=== PATIENT | female | born 1955 | race Caucasian/White ===

== ENCOUNTER 2018-07-08 15:40 | Outpatient (REF) | payer BC, SELFPAY ==
--- NOTE | 2018-07-08 15:00 | PAPFT_PTH ---
PATIENT: Flor Ziegler LOC: [facility] U#:[id number] AGE/SX: 63/F ROOM: RE07/08/[address]: Jany Rivera : 1955 BED: DIS: 07/08/2018 SPEC #: [id number] RECD: 07/08/18 17:55 STATUS: MICHAELLE RERicky #: [id number] SHIRA: 07/08/18 15:[address]: Jany Rivera DEPT: [facility] Cytology RECD BY: Sherrell Thurston ENTERED: 07/08/18 17:55 SP TYPE: PAPFT OTHR DR: Kev Montero Tissues: 1 - CX/ENDOCX FOR PAP SMEARS Procedures: PAP THIN PREP/UVM Screening HPV DNA PROBE Comments: [id number]
== END 2018-07-08 16:00 ==
LOC: LBN 15:40
PROVIDERS: PCP Internal Medicine; Visit Provider Obstetrics & Gynecology Gynecology
DX: Z12.4 Encounter for screening for malignant neoplasm of cervix (principal); Z11.51 Encounter for screening for human papillomavirus (HPV)
CPT/HCPCS: 88142; 87624

== ENCOUNTER 2018-08-30 08:46 | Emergency (ER) | payer BC, SELFPAY ==
--- NOTE | 2018-08-30 08:59 | NUR.NOTE ---
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
[2018-08-30 09:00] VITALS: BP 130/65; PULSE 89; RESP 15; TEMP 36.9; O2SAT 99
--- NOTE | 2018-08-30 09:21 | W.ED.GENAD ---
Discharge Plan Disposition Patient Disposition: HOME Condition: Good Discharge Details Chief Complaint: AnimalBite Clinical Impression: Cat bite Primary Care Provider: Kev Montero ED Provider: Edgar Chaudhari Home Meds and New Rx's Prescriptions: New amoxicillin-pot clavulanate [Augmentin] 875-125 mg tablet 1 tab PO BID Qty: 20 RF: 0 No Action cholecalciferol (vitamin D3) 2,000 unit capsule 2,000 unit PO DAILY RF: 0 tretinoin [Retin-A] 45 GM cream 45 gm Topical DAILY RF: 0 clindamycin phosphate [Cleocin T] 1 EACH swab 1 ea Topical DAILY RF: 0 nitrofurantoin macrocrystal 100 mg capsule 100 mg PO DAILY PRN (Reason: postcoital cystitis) Qty: 90 RF: 4 biotin 1 MG capsule 1 tab PO QAM RF: 0 Discharge Instructions Instructions: Animal Bite (ED) Additional Instructions: Please closely watch for redness, swelling or discharge. Please take the antibiotic as directed. Please continue to bandage the wound as we showed you. If you notice any redness swelling or discharge return immediately for reevaluation. He may need IV antibiotics at this does occur. Please call us immediately when you return to the nursing home after you have reviewed the rabies status of the animal, if the rabies is not up-to-date please return for immediately your vaccines. If you notice any worsening of your symptoms, or any new symptoms such as vomiting, diarrhea, fever, chills, shortness of breath, chest pain, numbness, weakness, or fainting , please return immediately to the emergency department for reevaluation. Please follow up with your primary care provider as soon as possible for reassessment and reevaluation. As always, it was a pleasure participating in your medical care today. Referrals: Kev Montero MD [Primary Care Provider] - Discharge Data Discharge Date/Time-TO BE ENTERED AT DEPARTURE: 08/30/18 09:51 Medical Decision Making This is a pleasant 63-year-old female who presents for Bite. 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 Uncertain of the cat's rabies status. After she was bit she immediately washed it with saline and hydrogen peroxide and came in for further evaluation. Exam demonstrates 2 small puncture wounds on the distal forearm, one small superficial abrasion just distal to the radius, and over the thenar eminence. No active bleeding. Sensation and neurovascular exam are otherwise normal. The areas were again cleaned with a chlorhexidine scrub vigorously for 3 minutes. No areas need suturing. Patient was given a dose of Augmentin, her tetanus has been updated. We are unable to get a hold of anyone at the nursing home, the patient forgot her cell phone at home. The patient will go back to the nursing home, review the cat's rabies status, and then if it is not up-to-date she will come back for her first rabies dose. I had a long discussion with her regarding red flags for which to return including signs or symptoms of redness, fever, or infection. Since there is no example or evidence of this at this current time I feel she can be safely discharged home. I have extensively reviewed the treatment plan and discharge instructions with the patient. I have addressed all patient concerns at this time. The patient was made aware of what symptoms to monitor for that would warrant a return to the emergency department. Discussed the plan with the patient, they demonstrate verbal understanding and agreement with our assessment and plan at this time. Patient did call back, and upon her review the Does have physicians up-to-date for rabies. Immunization catch order was [id number]. No indication for rabies vaccination for the patient here. Patient is doing well on her call back. HPI General Date/Time Provider Initiated Documentation: 08/30/18 09:09. HPI Narrative: This is a pleasant 63-year-old female with no significant past medical history who presents today for evaluation of Bite. 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 She cleaned the area with soap and water and hydrogen peroxide, and then came in for further evaluation. She denies any significant numbness tingling or weakness. She denies any complaints of fever or chills. No other complaints at this time. No other modifying factors. Her tetanus is not up-to-date. Patient is uncertain of the rabies status of the cat but she thinks it is up-to-date. Related Data Home Medications Medication Instructions Recorded Confirmed biotin 1 tab PO QAM 05/29/14 08/30/18 clindamycin phosphate [Cleocin T 1 ea TOPICAL DAILY script 09/07/15 08/30/18 Pledget] tretinoin [Retin-A 0.05% Cream] 45 gm TOPICAL DAILY script 09/07/15 08/30/18 nitrofurantoin macrocrystal 100 mg 100 mg PO DAILY PRN #90 cap 06/04/18 08/30/18 capsule cholecalciferol (vitamin D3) 2,000 2,000 unit PO DAILY 07/08/18 08/30/18 unit capsule amoxicillin-pot clavulanate 1 tab PO BID #20 tab 08/30/18 [Augmentin] Previous Rx's Medication Instructions Recorded nitrofurantoin macrocrystal 100 mg 100 mg PO DAILY PRN #90 cap 06/04/18 capsule amoxicillin-pot clavulanate 1 tab PO BID #20 tab 08/30/18 [Augmentin] Allergies Allergy/AdvReac Type Severity Reaction Status Date / Time sulfamethoxazole Allergy Hives Unverified 08/30/18 09:02 [From Bactrim] trimethoprim [From Bactrim] Allergy Hives Unverified 08/30/18 09:02 General Stated Complaint: AnimalBite KATHRINE: 4 Review of Systems Review of Systems All systems reviewed & are unremarkable except as noted in HPI and below PFSH Medical History Diverticulitis of both large and small intestine with perforation and abscess with bleeding (~2006) Osteopenia Sciatica Seasonal affective disorder UTI diverticulosis hx of postcoital cystitis rosacea Surgical History Colectomy Colonoscopy - IV Sedation Ligation of fallopian tube knee surgery Family History Other AAA (abdominal aortic aneurysm) Social History household members: spouse marital status details: Sherif number of children: 0 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 pets and animals: Yes (6 cats at home) pets and animals: cat(s) leisure activities: exercise Smoking and Tabacco status: Former Tobacco Use alcohol intake: current alcohol intake frequency: a few times a week substance use type: does not use Seatbelt use: always Female Reproductive History Menstrual control method: none History History 2 Para 0 Hx # Term Pregnancies 0 Multiple births Hx # Pregnancies Ectopic pregnancies AB induced Hx Number of Living Children AB spontaneous Exam Narrative Exam Narrative: 1.Const: Well-nourished, Well-developed, appearing stated age 2.Eyes: PERRL, no conjunctival injection, and symmetrical lids. 3.ENT: Atraumatic external nose and ears. Moist MM. Neck: Symmetric, trachea midline, No thyromegaly. 4.CVS: +S1/S2, No murmurs or gallops. Peripheral pulses 2+ and equal in all extremities. Brisk capillary refill in all extremities. 5.RESP: Unlabored respiratory effort. Clear to auscultation bilaterally. No wheezes rales or rhonchi 6.GI: Soft, Nontender/Nondistended, No hepatosplenomegaly. No guarding or rebound. 7.MSK: Normocephalic/Atraumatic, Extremities w/o deformity or ttp No cyanosis or clubbing, Normal movement of all extremities 8.Skin: Warm, Dry. 2 small puncture wounds 3 inches proximal to the distal radius on the right forearm, one small superficial scrape just distal to the distal radius. One small abrasion on the thenar eminence on the anterior component. No active bleeding. Minimal surrounding erythema. No purulent discharge. Symmetrically palpable radial and ulnar pulses. Capillary refill ?2 seconds to all digits. Intact sensation to light touch of the radial, median and ulnar nerves demonstrated by testing in the dorsal web space of the thumb, the distal palmar aspect of the index finger, and the lateral surface of the fifth finger. 2 point discrimination intact to 5mm of discrimination in the affected digit. 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 Intact recurrent median nerve as demonstrated by ability to move thumb fully through opposition, abduction and flexion. No snuffbox tenderness. 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 Sensation grossly intact, no focal neurologic deficits. 10.Psych: (AAO) x3. Appropriate mood and affect Course Vital Signs Temperature 36.9 C 08/30/18 09:00 Pulse 89 08/30/18 09:00 Respiratory Rate 15 08/30/18 09:00 Blood Pressure 130/65 08/30/18 09:00 Pulse Oximetry 99 08/30/18 09:00 Temperature 36.9 C 08/30/18 09:00 Temperature Source Skin 08/30/18 09:00 Pulse 89 08/30/18 09:00 Respiratory Rate 15 08/30/18 09:00 Respiratory Effort 08/30/18 09:02 Blood Pressure 130/65 08/30/18 09:00 Blood Pressure Position Sitting 08/30/18 09:00 Pulse Oximetry 99 08/30/18 09:00 Oxygen Delivery Method Room Air 08/30/18 09:00 Oxygen Flow Rate 0 08/30/18 09:00 Pain Level 2 08/30/18 09:00
--- NOTE | 2018-08-30 09:38 | NUR.NOTE ---
message left on [facility] Officer voice mail Rony Archibald [phone] to call back so I can report animal bite.Nursing Note:
[2018-08-30] MEDS: Amoxicillin 875/Clav. 125 TAB (09:39)
[2018-08-30 09:48] VITALS: BP 130/65; PULSE 89; RESP 15; TEMP 36.9; O2SAT 99
== END 2018-08-30 09:51 | disposition home or self-care (01) ==
LOC: ER 09:49
PROVIDERS: Emergency Provider Student in an Organized Health Care Education/Training Program; PCP Internal Medicine
DX: S51.831A Puncture wound without foreign body of right forearm, initial encounter (principal); S60.511A Abrasion of right hand, initial encounter; W55.01XA Bitten by cat, initial encounter
CPT/HCPCS: 90471; 99284; 99283

== ENCOUNTER 2018-11-13 09:22 | Emergency (ER) | payer BC, SELFPAY ==
[2018-11-13 09:24] VITALS: BP 128/76; PULSE 124; RESP 16; TEMP 36.7; O2SAT 98
[2018-11-13] MEDS: Normal Saline 1,000 ML 1000 ML IV (09:50)
--- NOTE | 2018-11-13 09:54 | DI.CT_ITS ---
SYMPTOMS/DIAGNOSIS: LLQ PAIN ABDOMINAL AND PELVIC CT: CT examination of the abdomen and pelvis was performed with a bolus infusion of 100 cc's of Omnipaque 350. Images obtained through the lung bases are unremarkable. There is an apparent 12 mm in diameter presumed left hepatic lobe cyst. Spleen is unremarkable. Pancreas appears normal. Gallbladder and bile ducts are CT normal. Abdominal aorta is of normal diameter and no major vascular abnormality is seen. No abdominal or pelvic adenopathy seen. Adrenals and kidneys are unremarkable. No urinary tract calcification or obstruction. Appendix appears normal. There is colonic diverticulosis. There is an apparent diverticulitis of the distal transverse colon with wall thickening and marked pericolonic fat edema. No evidence of abscess or perforation. No evidence of obstruction. CONCLUSION: Findings consistent with diverticulitis of the distal transverse colon as described above.
[2018-11-13 09:55] LABS: Abs Immature Grans 0.05 k/cumm (0.0-0.09); Absolute Basophil Count 0.02 k/cumm (0.0-0.2); Absolute Eosinophil Count 0.04 k/cumm (0.0-0.7); Absolute Lymphocyte Count 1.78 k/cumm (1.2-3.4); Absolute Monocyte Count 1.03 k/cumm (0.11-0.7); Absolute Neutrophil Count 8.27 k/cumm (1.2-6.7); Basophils % 0.2; Eosinophils % 0.4; HCT 39.4 % (36.0-46.0); HGB 13.2 g/dL (12.0-15.5); Immature Grans % 0.4; Lymphocytes % 15.9; Mean Corp. HGB Concentration 33.5 g/dL (32.0-36.0); Mean Corpuscular Volume 92.5 fL (80-95); Mean Platelet Volume 9.1 fL (8.0-11.0); Monocytes % 9.2; Neutrophils % 73.9; Platelet Count 201 x1000/uL (130-400); RBC 4.26 m/cumm (4.00-5.20); RBC Distribution Width 12.5 % (11.7-14.6); White Blood Cell Count 11.19 k/cumm (4.4-10.8)
--- NOTE | 2018-11-13 09:59 | ED.GENADUL_ITS ---
Discharge Plan Disposition Patient Disposition: HOME Condition: Fair Discharge Details Chief Complaint: Abd Prob Clinical Impression: Diverticulitis Primary Care Provider: Kev Montero ED Provider: Dixie Sorensen Home Meds and New Rx's Prescriptions: New metronidazole [Flagyl] 500 mg tablet 500 mg PO TID Qty: 30 RF: 0 ciprofloxacin HCl [Cipro] 500 mg tablet 500 mg PO BID Qty: 20 RF: 0 promethazine 25 mg tablet 25 mg PO Q6H PRN (Reason: nausea and vomiting) Qty: 10 RF: 0 oxycodone 5 mg tablet 5 mg PO Q6H PRN (Reason: pain) Qty: 7 RF: 0 No Action cholecalciferol (vitamin D3) 2,000 unit capsule 2,000 unit PO DAILY RF: 0 tretinoin [Retin-A] 45 GM cream 45 gm Topical DAILY RF: 0 clindamycin phosphate [Cleocin T] 1 EACH swab 1 ea Topical DAILY RF: 0 nitrofurantoin macrocrystal 100 mg capsule 100 mg PO DAILY PRN (Reason: postcoital cystitis) Qty: 90 RF: 4 Discharge Instructions Instructions: Diverticulitis (ED), Diverticulitis Diet (ED) Additional Instructions: Encourage hydration. Tylenol and ibuprofen as needed for discomfort. May augment this with the Oxycodone as prescribed. Take this medication as prescribed, keep in a safe place. Please take antibiotics as prescribed. Even if symptoms improve, please take the entire course. Please take probiotic while taking these medications. You have an appointment Saturday with primary care office at 10:15AM. If you are unable to make appointment, please call number listed below. If you develop fever/chills, increased pain, inability stay hydrated or the new/worsening symptoms please seek care urgently once again Referrals: Kev Montero MD [Primary Care Provider] - Medical Decision Making Patient presents today with chief complaint of left lower quadrant pain that began yesterday. On exam, patient does appear uncomfortable. She is noted to be tachycardic, heart rate currently 124. She is tender in the left lower quadrant. She does appear dehydrated. Concern for recurrence of her diverticulitis versus other abdominal source. Pain does not seem low enough to be associated with gynecologic complaints. I am concerned with the patient's history for complications associated with diverticulitis and therefore will obtain a CT scan. Patient requesting analgesia and antiemetic. Labs significant for leukocytosis of 11.19, gap 12.5, AST 49. AST has not been elevated historically. Discussed this with patient. Do not think that this linked to todays complaint, advised her PCP will need to recheck this. Awaiting CT. Spoke with radiologist who advises findings consistent with acute diverticulitis. No findings suggestive of abscess or perforation. Discussed these findings with the patient. She will be placed on ofloxacin and Flagyl. She is been on these medications as directed and is tolerating them well. We discussed the risks associated with these medications. Encouraged that she use a probiotic. Patient is also requesting medication for pain and nausea. Will prescribe oral Phenergan and oxycodone. She was given strict usage guidelines on the oxycodone. Advised that she only uses if unsuccessful Tylenol and ibuprofen. Encourage hydration. Advised patient needs close follow-up with primary care, appointment Saturday with primary care office at 10:15AM for follow-up. She was given strict return precautions. All his questions and concerns were addressed and she is in agreement with this plan HPI General Mode of arrival: ambulatory . Date/Time Provider Initiated Documentation: 11/13/18 09:39 . Limitations to Documentation: no limitations . Information obtained by: patient and RN notes reviewed . HPI Narrative: Patient is a 63-year-old female presents today with chief complaint of left lower quadrant pain. She reports the pain began yesterday patient reports that she has history of diverticulitis is quite similar to this. Last episode of diverticulitis was in 2006 at which time the patient is up with a perforation and subsequent partial colectomy. She is since had a reversal of her colonoscopy. She denies any fevers or chills. Denies any changes in bowel or bladder habits. Is not noted any blood in her stool. Pain is not radiate. Denies any back pain. Surgical history also pertinent for tubal ligation. Related Data Home Medications Medication Instructions Recorded Confirmed clindamycin phosphate [Cleocin T 1 ea TOPICAL DAILY script 09/07/15 11/13/18 Pledget] tretinoin [Retin-A 0.05% Cream] 45 gm TOPICAL DAILY script 09/07/15 11/13/18 nitrofurantoin macrocrystal 100 mg 100 mg PO DAILY PRN #90 cap 06/04/18 11/13/18 capsule cholecalciferol (vitamin D3) 2,000 2,000 unit PO DAILY 07/08/18 11/13/18 unit capsule ciprofloxacin HCl [Cipro] 500 mg PO BID #20 tab 11/13/18 metronidazole [Flagyl] 500 mg PO TID #30 tab 11/13/18 oxycodone 5 mg PO Q6H PRN #7 tab 11/13/18 promethazine 25 mg PO Q6H PRN #10 tab 11/13/18 Previous Rx's Medication Instructions Recorded nitrofurantoin macrocrystal 100 mg 100 mg PO DAILY PRN #90 cap 06/04/18 capsule ciprofloxacin HCl [Cipro] 500 mg PO BID #20 tab 11/13/18 metronidazole [Flagyl] 500 mg PO TID #30 tab 11/13/18 oxycodone 5 mg PO Q6H PRN #7 tab 11/13/18 promethazine 25 mg PO Q6H PRN #10 tab 11/13/18 Allergies Allergy/AdvReac Type Severity Reaction Status Date / Time sulfamethoxazole Allergy Hives Unverified 11/13/18 09:32 [From Bactrim] trimethoprim [From Bactrim] Allergy Hives Unverified 11/13/18 09:32 General Stated Complaint: Abd Prob KATHRINE: 3 Review of Systems Constitutional Reports as per HPI, Denies chills, Denies fatigue, Denies fever(s) and Denies headache(s) ENT Denies headache(s) Cardiovascular Reports as per HPI, Denies chest pain and Denies dyspnea Respiratory Reports as per HPI, Denies cough and Denies dyspnea Gastrointestinal Reports as per HPI, Reports abdominal pain, Denies melena, Denies change in bowel habits, Denies change in stool character, Denies cramping, Denies heartburn, Denies diarrhea, Denies loose stools, Reports nausea, Denies vomiting and Denies hematemesis Genitourinary Reports as per HPI Musculoskeletal Reports as per HPI and Denies back pain Integumentary/Breasts Reports as per HPI and Denies rash Neurologic Reports as per HPI and Denies headache(s) Endocrine Denies fatigue [facility] Medical History Diverticulitis of both large and small intestine with perforation and abscess with bleeding (~2006) Osteopenia Sciatica Seasonal affective disorder UTI diverticulosis hx of postcoital cystitis rosacea Surgical History Colectomy Colonoscopy - IV Sedation Ligation of fallopian tube knee surgery Family History Other AAA (abdominal aortic aneurysm) Social History Smoking/Tobacco Use Status: Former Tobacco Use Alcohol Intake: current Alcohol Intake frequency: a few times a week Alcohol type: wine Drug use: Never Substance use type: does not use Household members: spouse Number of Children: 0 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 Pets and animals: Yes (6 cats at home) Pets and animals: cat(s) Seatbelt use: always Do you feel safe at home: Yes Do you feel safe in your relationship?: Yes Female Reproductive History Menstrual control method: none History History 2 Para 0 Hx # Term Pregnancies 0 Multiple births Hx # Pregnancies Ectopic pregnancies AB induced Hx Number of Living Children AB spontaneous Exam Const General: cooperative, healthy appearing, comfortable, no acute distress and well developed Nutritional Appearance: average body habitus and well nourished Orientation: alert and awake HENMT Head: normal to inspection Mouth: moist mucous membranes Resp Effort & Inspection: normal respiratory effort, able to speak in complete sentences and no respiratory distress Auscultation: clear to auscultation bilaterally, no rales, no rhonchi and no wheezes Cardio Rate: regular rate Rhythm: regular rhythm Heart Sounds: S1 normal and S2 normal GI Inspection: normal to inspection and scar (low midline inicision, well healed) Palpation: soft, no hepatosplenomegaly, not firm, no guarding, tender in the LLQ; obturator sign negative, psoas sign negative and with no rebound tenderness and No ascites Percussion: normal to percussion Auscultation: normal bowel sounds Back/Spine/Pelvis Back: no CVA tenderness Skin General skin exam: no rashes or lesions noted Trauma: no lacerations or abrasions Neuro General: alert and awake Cognition: normal cognition Speech: speech normal Gait: normal gait Psych Appearance: grossly normal and well kempt Mental Status: mental status grossly normal Speech and Movement: speech and movement normal Course Vital Signs Temperature 36.7 C 11/13/18 09:24 Pulse 124 H 11/13/18 09:24 Respiratory Rate 16 11/13/18 09:24 Blood Pressure 128/76 11/13/18 09:24 Pulse Oximetry 98 11/13/18 09:24 Temperature 36.7 C 11/13/18 09:24 Temperature Source Skin 11/13/18 09:24 Pulse 124 H 11/13/18 09:24 Respiratory Rate 16 11/13/18 09:24 Respiratory Effort Short of Breath 11/13/18 09:29 Blood Pressure 128/76 11/13/18 09:24 Blood Pressure Position Sitting 11/13/18 09:24 Pulse Oximetry 98 11/13/18 09:24 Oxygen Delivery Method Room Air 11/13/18 09:24 Oxygen Flow Rate 0 11/13/18 09:24 Pain Level 5 11/13/18 09:24
[2018-11-13 10:15] LABS: ALT 57 U/L (12-78); AST 49 U/L (15-37); Albumin 3.9 g/dL (3.4-5.0); Alkaline Phosphatase 104 U/L (46-116); Anion Gap 12.5 mmol/L (3-11); BUN 18 mg/dL (7-18); Bilirubin, Total 0.4 mg/dL (0.2-1.0); CO2 23.5 mmol/L (21.0-32.0); CREATININE 0.63 mg/dL (0.55-1.02); Calcium 8.6 mg/dL (8.5-10.1); Chloride 101 mmol/L (98-107); Glucose 100 mg/dL (70-100); Potassium 3.7 mmol/L (3.5-5.1); Sodium 137 mmol/L (136-145); Total Protein 7.6 g/dL (6.4-8.2)
[2018-11-13 10:17] LABS: Troponin I < 0.02 ng/mL (0.00-0.06)
[2018-11-13] MEDS: Ondansetron 4 MG/2 ML VIAL IVP (10:35)
[2018-11-13 10:39] VITALS: BP 133/56; PULSE 103; RESP 18; TEMP 36.8; O2SAT 99
[2018-11-13 10:39] LABS: Bilirubin Negative (Negative); Blood Trace-lysed (Negative); Clarity Clear; Glucose Negative (Negative); Ketones Negative (Negative); Leukocyte Esterase Negative (Negative); Nitrite Negative (Negative); Urobilinogen 0.2 EU/dL (Up TO 0.2)
[2018-11-13 10:56] LABS: Bacteria Rare HPF (Negative); C & S Indicated? No; Casts Negative LPF (Negative); Crystals Negative HPF (Negative); Epithelial Cells Rare HPF (Negative); Mucus Negative (Negative); RBC 0-2 (0-2); WBC 0-2 HPF (0-5)
[2018-11-13] MEDS: Omnipaque 350 MG/ML 100 ML BTL IJ (12:17)
[2018-11-13] MEDS: Normal Saline 1,000 ML 500 ML IV (12:26)
== END 2018-11-13 13:10 | disposition home or self-care (01) ==
PROVIDERS: Emergency Provider Physician Assistant; PCP Internal Medicine
DX: K57.30 Diverticulosis of large intestine without perforation or abscess without bleeding (principal)
CPT/HCPCS: 36415; 80053; 96361; 96374; 96375; 99285; 74177; 81003; 81015; 83735; 84484; 85025; 99284; J2405; J3490

== ENCOUNTER 2018-11-17 11:18 | Outpatient (REF) | payer BC, SELFPAY ==
[2018-11-17 22:18] LABS: Bacteria Rare HPF (Negative); C & S Indicated? No; Casts Negative LPF (Negative); Crystals Negative HPF (Negative); Epithelial Cells Rare HPF (Negative); Mucus Negative (Negative); RBC Negative (0-2); WBC Negative HPF (0-5)
== END 2018-11-17 11:38 ==
LOC: NCHCN 11:18
PROVIDERS: PCP Internal Medicine; Visit Provider Specialist/Technologist Athletic Trainer
DX: R31.21 Asymptomatic microscopic hematuria (principal); K57.92 Diverticulitis of intestine, part unspecified, without perforation or abscess without bleeding
CPT/HCPCS: 81015

== ENCOUNTER 2019-02-13 16:05 | Outpatient (REF) | payer BC, SELFPAY ==
[2019-02-13 21:00] LABS: Abs Immature Grans 0.02 k/cumm (0.0-0.09); Absolute Basophil Count 0.03 k/cumm (0.0-0.2); Absolute Eosinophil Count 0.04 k/cumm (0.0-0.7); Absolute Lymphocyte Count 2.05 k/cumm (1.2-3.4); Absolute Monocyte Count 0.44 k/cumm (0.11-0.7); Absolute Neutrophil Count 3.76 k/cumm (1.2-6.7); Basophils % 0.5; Eosinophils % 0.6; HCT 43.3 % (36.0-46.0); HGB 14.2 g/dL (12.0-15.5); Immature Grans % 0.3; Lymphocytes % 32.3; Mean Corp. HGB Concentration 32.8 g/dL (32.0-36.0); Mean Corpuscular Hemoglobin 30.8 pg (27.0-33.0); Mean Corpuscular Volume 93.9 fL (80-95); Mean Platelet Volume 9.6 fL (8.0-11.0); Monocytes % 6.9; Neutrophils % 59.4; Platelet Count 253 x1000/uL (130-400); RBC 4.61 m/cumm (4.00-5.20); RBC Distribution Width 12.7 % (11.7-14.6); White Blood Cell Count 6.34 k/cumm (4.4-10.8)
[2019-02-13 21:07] LABS: ALT 26 U/L (12-78); AST 11 U/L (15-37); Albumin 4.2 g/dL (3.4-5.0); Alkaline Phosphatase 75 U/L (46-116); Anion Gap 9.8 mmol/L (3-11); BUN 14 mg/dL (7-18); Bilirubin, Total 0.2 mg/dL (0.2-1.0); CO2 28.2 mmol/L (21.0-32.0); CREATININE 0.64 mg/dL (0.55-1.02); Calcium 8.9 mg/dL (8.5-10.1); Chloride 105 mmol/L (98-107); Glucose 92 mg/dL (70-100); Sodium 143 mmol/L (136-145); Total Protein 7.5 g/dL (6.4-8.2)
== END 2019-02-13 16:25 ==
LOC: NCHCN 16:05
PROVIDERS: PCP Internal Medicine; Visit Provider Nurse Practitioner Family
DX: R10.32 Left lower quadrant pain (principal); K57.92 Diverticulitis of intestine, part unspecified, without perforation or abscess without bleeding
CPT/HCPCS: 80053; 85025

== ENCOUNTER 2020-04-27 02:39 | Outpatient (CLI) | payer OTHER, SELFPAY ==
--- NOTE | 2020-04-27 13:09 | DI.MAMMO_ITS ---
EXAM: MAMMO SCREENING CLINICAL HISTORY: SCREENING,Z12.31 TECHNIQUE: Mammograms were interpreted according to the usual protocol including computer analysis w [employer] CAD system, tomosynthesis and C-view imaging. COMPARISON: FINDINGS: The breasts are of moderate density with fairly symmetrical distribution of fibroglandular tissue. N o dominant mass or clumped microcalcification is identified in either breast. The current examinatio n is compared with previous examinations including May 2017 and there has been no gross interval change in appearance in comparison with the prior studies. IMPRESSION: No specific evidence of malignancy at this time. Routine screening examinations are suggested at yea rly intervals due to the family history of breast carcinoma. BI-RADS Category 1 - Negative Breast Density - Category B - Scattered areas of fibroglandular density
== END 2020-04-27 02:59 ==
PROVIDERS: PCP Internal Medicine; Visit Provider Nurse Practitioner Family
DX: Z12.31 Encounter for screening mammogram for malignant neoplasm of breast (principal); Z80.3 Family history of malignant neoplasm of breast
CPT/HCPCS: 77063; 77067

== ENCOUNTER 2020-07-04 13:48 | Outpatient (REF) | payer OTHER, SELFPAY ==
[2020-07-04 20:37] LABS: Calculated LDL 158 mg/dL (<100); Cholesterol 245 mg/dL (<200); HDL Cholesterol 72 mg/dL (40-60); Triglyceride 78 mg/dL (<150)
== END 2020-07-04 14:08 ==
LOC: NCHCN 13:48
PROVIDERS: PCP Internal Medicine; Visit Provider Nurse Practitioner Family
DX: E78.00 Pure hypercholesterolemia, unspecified (principal); F41.8 Other specified anxiety disorders; N39.46 Mixed incontinence
CPT/HCPCS: 80061

== ENCOUNTER 2020-11-04 12:19 | Emergency (ER) | payer OTHER, SELFPAY ==
[2020-11-04] VITALS (29 sets, daily range): BP systolic 93–141; BP diastolic 53–77; PULSE 68–98; RESP 12–22; TEMP 36.3; O2SAT 98–100
--- NOTE | 2020-11-04 12:15 | RT.EKG_ITS ---
APPROVED REPORT Exam: Resting ECG Reason for Exam: stroke symptoms Patient Location: E HR:77 bpm ECG Measurements Heart Rate 77 AXIS WV 148 P 87 QRSd 111 QRS 67 QT 417 T 46 QTc 472 Conclusion Sinus bradycardia...rate< 93 Borderline prolonged WV interval...WV >142, V-rate 50- 90 Nonspecific intraventricular conduction delay...QRS > 84mS patient actually in her 60's, not a pediatric patient, is currently a Poonam Koenig so 0/0/0 no acute ishcemic findings, regular rate
--- NOTE | 2020-11-04 12:15 | DI.RAD_ITS ---
Exam(s) XR PORTABLE CHEST AP EXAM: XR PORTABLE CHEST AP CLINICAL HISTORY: stroke symptoms TECHNIQUE: 2D digital imaging was performed. COMPARISON: No exams were available for comparison FINDINGS: MEDIASTINUM: Normal. HEART: Normal. PULMONARY VASCULATURE: Normal. LUNGS: Clear. PLEURAL SPACE: No pleural effusion or pneumothorax. BONE:Within normal limits for the patient's age. OTHER FINDINGS:Normal. IMPRESSION: No acute pulmonary findings. DATA REPOSITORY: RADIATION DOSE DELIVERED:
--- NOTE | 2020-11-04 12:27 | ED.GENADUL_ITS ---
Discharge Plan Disposition Patient Disposition: [facility] Condition: Serious Discharge Details Clinical Impression: Acute cerebrovascular accident (CVA) ED Provider: Toni Rojas Home Meds and New Rx's Prescriptions: No Action clindamycin phosphate [Cleocin T] 1 EACH swab 1 ea Topical DAILY RF: 0 nitrofurantoin macrocrystal 100 mg capsule 100 mg PO DAILY PRN (Reason: postcoital cystitis) Qty: 90 RF: 4 tretinoin [Avita] 0.025 % Cream 1 applic TOPICAL DAILY RF: 0 gabapentin 300 mg capsule 300 mg PO DAILY RF: 0 escitalopram oxalate 20 mg tablet 20 mg PO DAILY RF: 0 Medical Decision Making Approximately 59 yo female with no known chronic medical problems comes in with ems with stroke like symptoms. She was on her phone talking to her boss when she started to slur her words and then the phone was dropped per ems report and this was around 11am today. The boss sent her coworkers to check on her and found her in her home office sitting in her chair not able to speak. On arrival she is still not able to say any words, her eyes are open and she can follow commands and does nod her head yes and no. She denies any head pain, chest pain, dyspnea, fevers. She does have bruising on the right forehead but was found in a chair and per ems report were told by coworkers this was from a seperate incident, she had it before today but can't provide any more details on mechanism. She has left sided facial droop, eyelids can still fully move up and she can close both eyes. EOMI, perrl. Her NIH stroke scale is 13(2 for ask month and age aphasia, 2 for facial palsy partial paralysis of lower face, 2 for right arm drift, 2 for right leg drift, 2 for ataxia in right arm and leg, 3 for language due to aphasia.mute, all other categories 0). I suspect ischemic stroke will obtain ct and cta along with labs and ecg and reassess. Blood glucose 103. Pt with stable exam, no changes. She still shakes her head no when asked if in pain. CT shows no hemorrhage but cta does show filling defect in left MCA per the patient. I discussed risks benefits of tpa with the patient and after discussion she would like to receive tpa if no contraindications Not on coumadin and platelet cout normal, on history no other contraindications to tpa. [place] [facility] [place] discuss [place] and transfer but they are unable to except any transfers at this time. Will call [facility] spoke with Dr. Booth from neuro at [facility]. She reviewed the case and is waiting to see the images on her end before further advisement and can't give permission officially to give tpa without looking at the images. I discussed this with the patient and she still would like to receive the med and given she is close to being at 3 hours will start tpa. Called [facility] and because she was entered initially as a bereket mayorga the birthday on the imaging was pushed wrong, they will work on resending it with real . [facility] states still having issues seeing the cat scan and it was sent with today's date for the rather than the patient's actual , radiologic technology teacher contacted and going to attempt to resend with accurate . Pt remains stable at this time neuro at [facility] were able to finally review the images and accept for transfer and patient remains stable, I did discuss possible endovascular treatment for her cva and she would consent to having this done after explaining risks and benefits. Dr. Booth accepts to their ED. [facility] can't transport with tpa running so wouldn't be able to leave here until 320pm the earliest when tpa finishes and then have a minimum 1.5 hour transport. Spoke with Dr. Booth who would prefer to send by air to [facility]ite if they are able to fly right now. Transfer center is going to check for this availability [facility] will [facility] here in half an hour, updated patient and she is still willing to go by air. Differential Diagnosis Differential Diagnosis: ischemic vs hemorrhagic cva Imaging Data Radiologic Study: Attestation: I personally reviewed and interpreted this imaging study as follows: Imaging: CT Scan Radiologist's impression: IMPRESSION: 1. Hyperdense focus seen in the left M1 segment suspicious for thrombus. This correspond to a filling defect seen on the CTA of the brain. 2. No other acute intracranial process. 3. Normal CTA examination of the neck. 4. Results of this exam have been verbally communicated with provider. Radiologic Study #2: Attestation: I personally reviewed and interpreted this imaging study as follows: Imaging: X-Ray Radiologist's impression: no acute findings Lab Data Lab results reviewed: Yes I reviewed the patient's lab results. HPI General Mode of arrival: EMS . Date/Time Provider Initiated Documentation: 11/04/20 12:24 . Limitations to Documentation: other (asphasia) . Information obtained by: patient . History of Present Illness 65 year old F presents to the emergency department with the chief complaint of right sided weakness and aphasia, described as moderate, Patient started experiencing this hour(s) (1) and it has been constant. No relieving factors improve symptom(s), No exacerbating factors reported . Patient did receive the following treatments prior to arrival, none Related Data Home Medications Medication Instructions Recorded Confirmed clindamycin phosphate [Cleocin T 1 ea TOPICAL DAILY script 09/07/15 11/04/20 [place]] nitrofurantoin macrocrystal 100 mg 100 mg PO DAILY PRN #90 cap 06/02/19 11/04/20 capsule escitalopram oxalate 20 mg PO DAILY 11/04/20 11/04/20 gabapentin 300 mg PO DAILY 11/04/20 11/04/20 tretinoin [Avita] 1 applic TOPICAL DAILY 11/04/20 11/04/20 Previous Rx's Medication Instructions Recorded nitrofurantoin macrocrystal 100 mg 100 mg PO DAILY PRN #90 cap 06/02/19 capsule Allergies Allergy/AdvReac Type Severity Reaction Status Date / Time sulfamethoxazole Allergy Hives Unverified 11/04/20 13:14 [From Bactrim] trimethoprim [From Bactrim] Allergy Hives Unverified 11/04/20 13:14 Review of Systems All systems reviewed & are unremarkable except as noted in HPI and below Constitutional Constitutional: Denies chills and Denies fever(s) Cardiovascular Cardiovascular: Denies chest pain and Denies dyspnea Respiratory Respiratory: Denies dyspnea Gastrointestinal Gastrointestinal: Denies vomiting Psychiatric Psychiatric: Denies depression [facility] Medical History (Updated 11/04/20 @ 14:12 by Toni Rojas MD) Diverticulitis (~11/13/18) Diverticulitis of both large and small intestine with perforation and abscess with bleeding (~2006) diverticulosis hx of postcoital cystitis resolved with Abx post intercourse. Microscopic hematuria Osteopenia rosacea Sciatica Seasonal affective disorder After relocating to [place] in 2015. Symptoms currently stable UTI Surgical History (System 11/04/20 @ 13:14 by Carlo Sinclair) Colectomy (~2006) Canseco procedure and reversal. 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 Pets and animals: Yes (6 cats at home) Pets and animals: cat(s) Seatbelt use: always Do you feel safe at home: Yes Do you feel safe in your relationship?: Yes History History 2 Para 0 Hx # Term Pregnancies 0 Multiple births Hx # Pregnancies Ectopic pregnancies AB induced Hx Number of Living Children AB spontaneous Exam Const General: other (eyes open not able to say words but can shake yes and no with head) Orientation: alert HENMT Head: no palpable skull fracture Ears: external ears normal General nose exam: external nose normal Mouth: moist mucous membranes Eyes General: appearance normal, both eyes and all related structures Neck Neck: normal visual inspection Resp Effort & Inspection: normal respiratory effort Cardio Rate: regular rate Skin General skin exam: no rashes or lesions noted Neuro General: patient alert Extrem General: normal to inspection Critical Care Time Critical Care Time Critical Care Time: Yes Total Critical Care Time: 60 (minutes) Attestation: Patient with acute cva requiring frequent reassessments and hem odynamic monitoring who received tpa and had the potential to deteriorate at any time
[2020-11-04 12:36] LABS: Abs Immature Grans 0.05 10^3/uL; Absolute Basophil Count 0.02 10^3/uL; Absolute Eosinophil Count 0.01 10^3/uL; Absolute Lymphocyte Count 0.73 10^3/uL; Absolute Monocyte Count 0.27 10^3/uL; Absolute Neutrophil Count 6.35 10^3/uL; Basophils % 0.3; Eosinophils % 0.1; HGB 14.6 g/dL (13.5-19.5); Immature Grans % 0.7; Lymphocytes % 9.8; MCH 30.9 pg; MCHC 32.4 %; MCV 95.3 fL (98-118); MPV 9.8 fL (8.0-11.0); Monocytes % 3.6; Neutrophils % 85.5; Nucleated RBC 0 %; RBC 4.72 10^6/uL (3.90-5.50); RDW 12.1 %; RDW-SD 43.3 fL; WBC 7.43 10^3/uL (9.0-38.0)
[2020-11-04] MEDS: Omnipaque 350 MG/ML 100 ML BTL IJ (13:00)
[2020-11-04] MEDS: Normal Saline - Diluent 50 ML VIAL IV (13:00)
--- NOTE | 2020-11-04 13:00 | DI.CT_ITS ---
Exam(s) CT BRAIN NECK CTA EXAM: CT BRAIN NECK CTA CLINICAL HISTORY: stroke symptoms, right sided weakness, aphasia. TECHNIQUE: Imaging Protocol: Axial CT angiography was performed with multi-slice acquisition and mu lti-planar and/or 3D reconstructions. CONTRAST MATERIAL: Intravenous: Omnipaque 350 Contrast volume:85 mL COMPARISON: No exams were available for comparison FINDINGS: CT Head W/O and W: Ventricles and Extra axial spaces: Normal in size and morphology for the patient's age. Hemorrhage: None. Cerebral parenchyma: There is a hyperdense focus in the M1 segment of the left middle cerebral artery suspicious for thrombus. No acute territorial infarct is seen at this time. Midline shift: None. Brainstem/Cerebellum: Normal. Calvarium: Normal. Visualized Paranasal sinuses/Mastoids: Clear. Soft Tissues: Unremarkable. Enhancement: Unremarkable. CTA Neck W: Common Carotid: Right: No dissection, occlusion or significant stenosis. Mild atherosclerosis at the distal common c arotid artery. Left: No dissection, occlusion or significant stenosis. Mild atherosclerosis at the distal common ca rotid artery. External Carotid: Right: No occlusion or significant stenosis. Left: No occlusion or significant stenosis. Internal Carotid: Right: No dissection, occlusion or significant stenosis. Left: No dissection, occlusion or significant stenosis. Vertebral Artery: Right: No dissection, occlusion or significant stenosis. Left: No dissection, occlusion or significant stenosis. Lung Apices: Normal. Bones: There are mild degenerative changes seen in the cervical spine. Soft Tissues: Normal. CTA Brain W: Internal Carotid Arteries: Petrous: Normal. Cavernous: Normal. Cerebral: Normal. Anterior Cerebral Arteries: Right: No aneurysm, occlusion or significant stenosis. Left: No aneurysm, occlusion or significant stenosis. Middle Cerebral Arteries: Right: No aneurysm, occlusion or significant stenosis. Left: There is a filling defect in the mid left M1 segment consistent with a thrombus. There is atte nuation of the vessels distally. Posterior cerebral Arteries: Right: No aneurysm, occlusion or significant stenosis. Left: No aneurysm, occlusion or significant stenosis. Vertebral Arteries: Right: The distal right vertebral artery isn't well visualized on this examination. Left: No aneurysm, occlusion or significant stenosis. There does appear to be a dominant left verteb ral artery. Basilar Artery: No aneurysm, occlusion or significant stenosis. IMPRESSION: 1. Hyperdense focus seen in the left M1 segment suspicious for thrombus. This correspond to a filling defect seen on the CTA of the brain. 2. No other acute intracranial process. 3. Normal CTA examination of the neck. 4. Results of this exam have been verbally communicated with provider. RADIATION DOSE DELIVERED: 2,052.31mGy.cm Total DLP DATA REPOSITORY: All CT scans at this facility are submitted to the National Radiology Data Registry (NRDR) Dose Index Registry (DIR) with the [employer] (A[employer]). RADIATION OPTIMIZATION: All CT scans at this facility use at least one of these dose optimization te chniques: automated exposure control; mA and/or kV adjustment per patient size (includes targeted exa ms where dose is matched to clinical indication); or iterative reconstruction.
[2020-11-04 13:01] LABS: Platelet Count 230 10^3/uL (130-400)
[2020-11-04 13:02] LABS: Diff Comment Diff Reviewed; RBC Morphology Normal
[2020-11-04 13:16] LABS: ALT 22 U/L (14-59); AST 17 U/L (15-37); Albumin 4.4 g/dL (3.4-5.0); Alkaline Phosphatase 89 U/L (46-116); Anion Gap 11.1 mmol/L (3-11); BUN 13 mg/dL (7-18); Bilirubin, Total 0.5 mg/dL (0.2-1.0); CO2 24.9 mmol/L (21.0-32.0); CREATININE 0.7 mg/dL (0.55-1.02); Calcium 9.3 mg/dL (8.5-10.1); Chloride 106 mmol/L (98-107); Glucose 112 mg/dL (74-106); Magnesium 2.5 mg/dL (1.8-2.4); Potassium 4.5 mmol/L (3.5-5.1); Sodium 142 mmol/L (136-145); TSH (W/Ref FT4) 1.65 uIU/mL (0.36-3.74); Total Protein 7.7 g/dL (6.4-8.2)
[2020-11-04 13:20] LABS: Bilirubin Negative (Negative); Blood Trace-intact (Negative); Clarity Clear (Clear); Glucose Negative (Negative); Ketones 15 mg/dL (Negative); Leukocyte Esterase Negative (Negative); Nitrite Negative (Negative); Urobilinogen 0.2 EU/dL (Up TO 0.2)
--- NOTE | 2020-11-04 13:21 | NUR.NOTE ---
Pt presents via EMS with noticeable right sided paralysis and slurred speach. Pt has noticeable abrasions to the right temporal area, right shoulder, and arm.
[2020-11-04 13:28] LABS: Bacteria Negative HPF (Negative); C & S Indicated? No; Casts Negative LPF (Negative); Crystals Negative HPF (Negative); Epithelial Cells Rare HPF (Negative); Mucus Negative (Negative); RBC 0-2 HPF (0-2); WBC 0-2 HPF (0-5)
[2020-11-04 13:32] LABS: ETHANOL BLOOD < 3.0 mg/dL (<3)
[2020-11-04 13:54] LABS: PTT Activated 20.7 sec (21.0-27.5); Prothrombin Time 10.3 sec (9.3-11.0)
[2020-11-04 14:13] LABS: COVID-19 PCR Negative (Negative)
--- NOTE | 2020-11-04 15:29 | NUR.NOTE ---
Addendum entered by Maximo Lovett 11/04/20 15:35: Alteplase administration completed at 1514 hrs. Original Note: Alteplase administration completed, no change in neurological or mental status. Slurred speech continues, right side still flacid and right sided facial droop. Bruises still noted with no significant change to the right forehead, shoulder and elbow. Nursing Note:
== END 2020-11-04 15:49 ==
LOC: ER 18:15
PROVIDERS: Emergency Provider Emergency Medicine; PCP Nurse Practitioner Family
DX: I63.9 Cerebral infarction, unspecified (principal); R29.810 Facial weakness; R47.81 Slurred speech; R29.713 NIHSS score 13
CPT/HCPCS: 36416; 70496; 70498; 80053; 82962; 86850; 86900; 86901; 87635; 93005; 96365; 99291; 71045; 80320; 81003; 81015; 83735; 84443; 85025; 85610; 85730; 86870; 93010; J2997; J3490